=== PATIENT | male | born 1960 | race Caucasian/White ===

== ENCOUNTER 2018-05-15 00:52 | Emergency (ER) | payer MEDICAID ==
[~2018-05-15] VITALS: Ht 177.8 cm; Wt 86.2 kg
[~2018-05-15 00:52] MED LIST: CYCL10 PO; Flomax0.4 MG PO; HYDACE5 PO; IBUP800 PO; KETO10 PO; LEVFLO500 PO; NAPR220 PO; OXYACE5T PO; Percocet 5-3251 EACH PO; Zofran Odt4 MG PO
[2018-05-15 01:17] LABS: BASOPHILS ABSOLUTE AUTO 0.03 K/mm3 (0.00-0.23); BASOPHILS PERCENT AUTO 0 % (0-2); EOSINOPHILS ABSOLUTE AUTO 0.23 K/mm3 (0.00-0.68); EOSINOPHILS PERCENT AUTO 2 % (0-6); Hematocrit 41.9 % (37.0-53.0); Hemoglobin 13.6 g/dL (13.5-17.5); IMMATURE GRAN ABSOLUTE AUTO 0.02 K/mm3 (0.00-0.10); IMMATURE GRAN PERCENT AUTO 0 % (0-1); LYMPHOCYTES ABSOLUTE AUTO 2.49 K/mm3 (0.84-5.20); LYMPHOCYTES PERCENT AUTO 22 % (21-46); MONOCYTES ABSOLUTE AUTO 0.79 K/mm3 (0.16-1.47); MONOCYTES PERCENT AUTO 7 % (4-13); Mean Corpuscular HGB 31.8 pg (26.0-34.0); Mean Corpuscular HGB Conc 32.5 g/dL (31.5-36.5); Mean Corpuscular Volume 98 fL (80-100); Mean Platelet Volume 9.8 fL (9.1-12.4); NEUTROPHILS ABSOLUTE AUTO 7.65 K/mm3 (1.96-9.15); NEUTROPHILS PERCENT AUTO 68 % (41-73); Platelet Count 321 K/mm3 (150-400); RDW Coefficient Variation 12.4 % (11.7-14.2); RDW Standard Deviation 44.9 fL (35.1-46.3); Red Blood Cell Count 4.28 M/mm3 (4.30-5.90); White Blood Cell Count 11.21 K/mm3 (4.00-11.30)
[2018-05-15 01:48] LABS: Alanine Aminotransfer (ALT/SGP 25 U/L (12-78); Albumin, Blood 3.3 g/dL (3.4-5.0); Albumin/Globulin Ratio 1.1 (0.8-1.8); Alk Phos 70 U/L (50-136); Anion Gap 6 mmol/L (6-16); Aspartate Aminotrans (AST/SGOT 20 U/L (12-37); Bilirubin, Total 0.4 mg/dL (0.1-1.0); Blood Urea Nitrogen 22 mg/dL (8-24); Bun/Creatinine Ratio 18.6 (12.0-20.0); CO2, Blood 31 mmol/L (21-32); Calcium, Blood 8.2 mg/dL (8.5-10.1); Chloride, Blood 106 mmol/L (98-108); Creatinine, Blood 1.18 mg/dL (0.60-1.20); Glomerular Filtration Rate >60 (60-); Glucose, Blood 109 mg/dL (70-99); Potassium, Blood 3.5 mmol/L (3.5-5.5); Sodium, Blood 143 mmol/L (136-145); Total Protein, Blood 6.3 g/dL (6.4-8.2); Troponin I <0.015 ng/mL (0.000-0.040)
[2018-05-15] MEDS ORDERED: Protonix40 MG PO (02:42)
== END 2018-05-15 05:00 | disposition home or self-care (01) ==
LOC: ER 00:52
PROVIDERS: Emergency Medicine
DX: R07.9 Chest pain, unspecified (principal); F17.210 Nicotine dependence, cigarettes, uncomplicated; Z88.0 Allergy status to penicillin
CPT/HCPCS: 36415; 71046; 80053; 83880; 84484; 85025; 93005; 93010; 99284-25

== ENCOUNTER 2019-12-08 10:18 | Emergency (ER) | payer OTHER ==
[~2019-12-08] VITALS: Ht 177.8 cm; Wt 84.8 kg
[~2019-12-08 10:18] MED LIST changes: +Protonix40 MG PO
[2019-12-08 11:03] LABS: BASOPHILS ABSOLUTE AUTO 0.06 K/mm3 (0.00-0.23); BASOPHILS PERCENT AUTO 0 % (0-2); EOSINOPHILS ABSOLUTE AUTO 0.19 K/mm3 (0.00-0.68); EOSINOPHILS PERCENT AUTO 1 % (0-6); Hematocrit 41.9 % (37.0-53.0); IMMATURE GRAN ABSOLUTE AUTO 0.06 K/mm3 (0.00-0.10); IMMATURE GRAN PERCENT AUTO 0 % (0-1); LYMPHOCYTES ABSOLUTE AUTO 2.93 K/mm3 (0.84-5.20); LYMPHOCYTES PERCENT AUTO 20 % (21-46); MONOCYTES ABSOLUTE AUTO 1.21 K/mm3 (0.16-1.47); MONOCYTES PERCENT AUTO 8 % (4-13); Mean Corpuscular HGB 31.8 pg (26.0-34.0); Mean Corpuscular HGB Conc 33.4 g/dL (31.5-36.5); Mean Corpuscular Volume 95 fL (80-100); Mean Platelet Volume 9.7 fL (9.1-12.4); NEUTROPHILS ABSOLUTE AUTO 10.38 K/mm3 (1.96-9.15); NEUTROPHILS PERCENT AUTO 70 % (41-73); Platelet Count 372 K/mm3 (150-400); RDW Coefficient Variation 12.1 % (11.7-14.2); RDW Standard Deviation 42.9 fL (35.1-46.3); White Blood Cell Count 14.83 K/mm3 (4.00-11.30)
[2019-12-08 11:10] LABS: Albumin, Blood 3.7 g/dL (3.4-5.0); Albumin/Globulin Ratio 1.1 (0.8-1.8); Bilirubin, Total 0.4 mg/dL (0.1-1.0); Bun/Creatinine Ratio 16.4 (12.0-20.0); Calcium, Blood 8.3 mg/dL (8.5-10.1); Creatinine, Blood 1.34 mg/dL (0.60-1.20); Globulin, Blood 3.4 g/dL (2.2-4.0); Potassium, Blood 3.9 mmol/L (3.5-5.5); Total Protein, Blood 7.1 g/dL (6.4-8.2)
[2019-12-08] MEDS ORDERED: Norco 7.5-3251 EACH PO (12:24)
[2019-12-08] MEDS ORDERED: ONDA4ODT MM (12:24)
== END 2019-12-08 12:45 | disposition home or self-care (01) ==
LOC: ER 10:18
PROVIDERS: Emergency Medicine
DX: N13.2 Hydronephrosis with renal and ureteral calculous obstruction (principal); F17.210 Nicotine dependence, cigarettes, uncomplicated; Z88.0 Allergy status to penicillin; Z79.899 Other long term (current) drug therapy; Z87.442 Personal history of urinary calculi
CPT/HCPCS: 36415; 74176; 80053; 85025; 96374; 96375; 96376; 99284-25; J1170; J1885; J2405

== ENCOUNTER 2022-08-27 07:26 | Day surgery (SDC) | payer OTHER ==
[~2022-08-27] VITALS: Ht 177.8 cm; Wt 83.4 kg
[~2022-08-27 07:26] MED LIST changes: +Norco 7.5-3251 EACH PO; +ONDA4ODT MM
== END 2022-08-27 10:42 | disposition home or self-care (01) ==
LOC: ORSCSDS 07:26
PROVIDERS: Surgery
PROC: 0DJD8ZZ Inspection of Lower Intestinal Tract, Via Natural or Artificial Opening Endoscopic (ICD-10-PCS; principal; 2022-08-27 08:45)
PROC: 0DB68ZX Excision of Stomach, Via Natural or Artificial Opening Endoscopic, Diagnostic (ICD-10-PCS; principal; 2022-08-27 08:45)
PROC: 0DB98ZX Excision of Duodenum, Via Natural or Artificial Opening Endoscopic, Diagnostic (ICD-10-PCS; principal; 2022-08-27 08:45)
DX: R93.3 Abnormal findings on diagnostic imaging of other parts of digestive tract (principal); K29.50 Unspecified chronic gastritis without bleeding; B96.81 Helicobacter pylori [H. pylori] as the cause of diseases classified elsewhere; K29.80 Duodenitis without bleeding; R10.31 Right lower quadrant pain; K21.9 Gastro-esophageal reflux disease without esophagitis; F17.210 Nicotine dependence, cigarettes, uncomplicated
CPT/HCPCS: 88305; 88342; J2704; J7120

== ENCOUNTER 2022-10-13 19:07 | Inpatient (IN) | payer OTHER ==
[~2022-10-13] VITALS: Ht 177.8 cm; Wt 79.4 kg
[2022-10-13 20:21] LABS: BASOPHILS ABSOLUTE AUTO 0.04 K/mm3 (0.00-0.23); BASOPHILS PERCENT AUTO 0 % (0-2); EOSINOPHILS PERCENT AUTO 2 % (0-6); Hemoglobin 12.2 g/dL (13.5-17.5); IMMATURE GRAN ABSOLUTE AUTO 0.02 K/mm3 (0.00-0.10); IMMATURE GRAN PERCENT AUTO 0 % (0-1); LYMPHOCYTES ABSOLUTE AUTO 1.35 K/mm3 (0.84-5.20); LYMPHOCYTES PERCENT AUTO 15 % (21-46); MONOCYTES ABSOLUTE AUTO 0.67 K/mm3 (0.16-1.47); MONOCYTES PERCENT AUTO 8 % (4-13); Mean Corpuscular HGB 29.8 pg (26.0-34.0); Mean Corpuscular Volume 90 fL (80-100); Mean Platelet Volume 10.2 fL (9.1-12.4); NEUTROPHILS ABSOLUTE AUTO 6.61 K/mm3 (1.96-9.15); NEUTROPHILS PERCENT AUTO 75 % (41-73); Platelet Count 407 K/mm3 (150-400); RDW Coefficient Variation 12.4 % (11.7-14.2); White Blood Cell Count 8.89 K/mm3 (4.00-11.30)
[2022-10-13 20:37] LABS: Albumin, Blood 3.5 g/dL (3.4-5.0); Albumin/Globulin Ratio 0.8 (0.8-1.8); Bilirubin, Total 0.4 mg/dL (0.1-1.0); Bun/Creatinine Ratio 12.6 (12.0-20.0); Calcium, Blood 9.4 mg/dL (8.5-10.1); Creatinine, Blood 1.03 mg/dL (0.60-1.20); Globulin, Blood 4.4 g/dL (2.2-4.0); Potassium, Blood 4.3 mmol/L (3.5-5.5); Total Protein, Blood 7.9 g/dL (6.4-8.2)
[2022-10-13] MEDS ORDERED: METRONIDAZOLE PO (22:17)
[2022-10-13] MEDS ORDERED: [UNRECOGNIZED DRUG - CODE] PO (22:18)
--- NOTE | 2022-10-14 06:03 | NUR ---
SHIFT SUMMARY PT ER ADMIT THIS SHIFT AFTER EXPERIENCING INCREASED N/V. PT HAS AN ABD MASS WITH PLANS FOR SURGERY TODAY. PT WAS TAKING PRE OP PREP MEDICATION AT HOME WHEN HE BGAN EXPERIENCING N/V AND WAS UNABLE TO KEEP ANYTHING DOWN. PT HAS BEEN ADMITTED PER DR. MEJIA'S RECOMMENDATION. PT HAS NOT HAD ANY EPISODES OF N/V SINCE BEING ADMITTED. PT HAD INTERMITTENT ABD PAIN UPON ADMISSION WHICH WAS RELIVED WITH IV DILAUDID. PAIN IS T/O ABD, AND ABD IS FIRM/TENDER. PT HAS BEEN NPO SINCE MIDNIGHT BUT WAS ABLE TO TOLERATE SMALL SIPS OF WATER PRIOR TO THAT TIME. PT HAS BEEN HYPERTENSIVE, MEDICATED WITH HYDRALYZINE WITH EFFECT. ADMISSION COMPLETE, BED IN LOWEST POSITON, CALL LIGHT WITHIN REACH.
--- NOTE | 2022-10-14 07:14 | NUR ---
PT TO OR AT ABOUT 0640
--- NOTE | 2022-10-14 08:52 | NUR ---
10/14/22 0852 JESSICA WARD BUPIVACAINE 0.5% WAS USED AT TIME OF PROCEDURE.
--- NOTE | 2022-10-14 19:55 | NUR ---
POST OP: REPORT RECEIVED FROM PICK UP DRIVER. PT TO UNIT AT ABOUT 1120. PT IS ORIENTED, DROWSY. AWAKENS TO VOICE AND FOLLOWS COMMANDS. SURGICAL SITE TO ABD AND NEW MEDI-PORT DRESSINGS CDI. MAYRA COMPRESSED. PT RATING PAIN 9/10, SALT MANAGER VERIFIED WITH FAUSTO RAINEY AND STARTED. PT FAMILY AT BEDSIDE, CALL LIGHT IN REACH.
--- NOTE | 2022-10-14 19:58 | NUR ---
SUMMARY: NO ACUTE CHANGE SINCE POST OP. PT CONTINUES TO BE A LITTLE DROWSY, BUT MORE TALKATIVE. PAIN BETTER MANAGED AND RATING 5/10. PT ABLE TO SIT AT EDGE OF BED TONIGHT FOR A LITTLE BEFORE LAYING BACK DOWN. LONG DRAINING. SURGICAL SITES WNL. CONTINUIOUS OXIMETERY IN PLACE, PT ENCOURAGED TO DEEP BREATHE WHEN POSSIBLE, BREATHING IS SHALLOW AT TIMES DUE TO PAIN. NO ACUTE SAFETY CONCERNS, REPORT PASSED TO NOC FAUSTO MAGANA.
--- NOTE | 2022-10-15 01:05 | NUR ---
PT C/O NAUSEA TONIGHT WITH NO MEDS ORDERED.I CALLED DR CHIRINOS AND REQUESTED MED FOR NAUSEA. ALSO ADVISED PT C/O INCREASED PAIN.HANDS AND FEET COOL WITH MOTTLING WHICH IS NOT RESOLVING WITH WARM BLANKETS TO BOTH.PERFUSION APPEARS AFFECTING ABILITY TO GET ACCURATE PULSE OX REQUIRING EAR PROBE.ALSO ADVISED THAT PT HAS HAD OCC STATEMENT INAPPROPRIATE TO SITUATION ? 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 ALSO ADVISED NO LABS ORDERED FOR AM. PT CURRENTLY REFUSING TO REPOSITION IN BED AND STATES UNDERSTANDS RISK.DR GAVE ORDER FOR ZOFRAN AND NO FURTHER ORDERS. VERB MOTTLING NOT CONCERNING.
--- NOTE | 2022-10-15 03:00 | NUR ---
PT RECEIVED ZOFRAN THIS AM PER NEW ORDER,AND RECEIVED HYDRALAZINE PER PRIOR ORDERS WITH DR CHIRINOS AWARE.NURSING CALL RECEIVED WITH PT C/O SUDDEN SOB. SEE VS.02 REMAINS ON 2 L SAME FOR THIS SHIFT.SATS STABLE.HEART RATE MILDLY INCREASED.I CALLED FOR DR CHIRINOS WHO CAME TO ROOM AND DR ASHLEY WAS ALSO TO ROOM PER CX BY DR CHIRINOS.SEE MED,LAB AND XRAY ORDERS.
[2022-10-15 03:34] LABS: BASOPHILS ABSOLUTE AUTO 0.04 K/mm3 (0.00-0.23); BASOPHILS PERCENT AUTO 0 % (0-2); EOSINOPHILS ABSOLUTE AUTO 0.02 K/mm3 (0.00-0.68); EOSINOPHILS PERCENT AUTO 0 % (0-6); IMMATURE GRAN ABSOLUTE AUTO 0.06 K/mm3 (0.00-0.10); IMMATURE GRAN PERCENT AUTO 0 % (0-1); LYMPHOCYTES ABSOLUTE AUTO 1.44 K/mm3 (0.84-5.20); LYMPHOCYTES PERCENT AUTO 10 % (21-46); MONOCYTES ABSOLUTE AUTO 1.21 K/mm3 (0.16-1.47); MONOCYTES PERCENT AUTO 9 % (4-13); Mean Corpuscular HGB 30.1 pg (26.0-34.0); Mean Corpuscular HGB Conc 33.3 g/dL (31.5-36.5); Mean Corpuscular Volume 90 fL (80-100); NEUTROPHILS PERCENT AUTO 80 % (41-73); Platelet Count 412 K/mm3 (150-400); RDW Coefficient Variation 12.6 % (11.7-14.2); RDW Standard Deviation 41.4 fL (35.1-46.3); Red Blood Cell Count 3.99 M/mm3 (4.30-5.90); White Blood Cell Count 13.87 K/mm3 (4.00-11.30)
[2022-10-15 03:53] LABS: Albumin, Blood 3.1 g/dL (3.4-5.0); Albumin/Globulin Ratio 0.8 (0.8-1.8); Bilirubin, Total 0.4 mg/dL (0.1-1.0); Bun/Creatinine Ratio 15.7 (12.0-20.0); Calcium, Blood 8.7 mg/dL (8.5-10.1); Creatinine, Blood 1.02 mg/dL (0.60-1.20); Globulin, Blood 3.7 g/dL (2.2-4.0); Potassium, Blood 4.4 mmol/L (3.5-5.5); Total Protein, Blood 6.8 g/dL (6.4-8.2)
--- NOTE | 2022-10-15 04:00 | NUR ---
PT HAS SLEPT POST TESTS AND DOCTORS TO ROOM. WHILE SLEEPING,RESP APPEAR EVEN AND UNLABORED.WHEN AWAKENED AND ASKED,PT CONT TO REPORT SOB. DR ASHLEY REPORTED CXR OK.
--- NOTE | 2022-10-15 06:18 | NUR ---
PTS BNP WNL.MILD JVD NOTED PRIOR.OTHER LABS SATISF.PT NOW VERB BREATHING HAS IMPROVED.PT PREVIOUSLY REFUSING REPOSITIONING,BUT FINALLY ALLOWED ASSIST TO REPOSITION TO L SIDE.REQUIRED MINIMAL ASSIST. EVENT SECURITY OFFICER BUTTON AND CALL LIGHT IN HAND. CONT COOL HANDS AND FEET WITH LIGHT MOTTLING.
--- NOTE | 2022-10-15 07:53 | NUR ---
summary pt had visitor this am.resting on l side. zofran helping nausea.reported resolving sob.
--- NOTE | 2022-10-15 17:09 | NUR ---
Care Conference this morning with pt and family. Pt's mom and dad, fiance and "best friend" at bedside. Pt states he understands he has a new diagnosis of cancer, and he is planning to begin chemo "soon". He denies having any questions at this time, and seemed anxious to end the conversation. No further needs identified at this time.
--- NOTE | 2022-10-15 17:38 | NUR ---
PT REPORTS INT HEARTBURN, PAIN ADEQUATELY CONTROLLED WITH SKIN TANNER. KACI SMALL AMOUNT OF ICE CHIPS AND CLEAR LIQUIDS WITHOUT NAUSEA. MAYRA DRESSING WITH SMALL AMOUNT DRIED BLOODY DRAINAGE. PT BELCHING BUT NOT PASSING FLATUS
--- NOTE | 2022-10-16 06:36 | NUR ---
PT IS COMFORTABLE REPOSITIONING SELF THROUGHOUT SHIFT
--- NOTE | 2022-10-16 07:32 | NUR ---
SUMMARY PT OFF O2 TONIGHT.MAINTAINING SATS GREATER THAN 90.ALERT AND VISITING WITH FAMILY AND FRIEND THIS AM.
--- NOTE | 2022-10-16 15:45 | NUR ---
1535 TRANSFERRED TO ROOM 311 VIA BED. PT REPORTS ABD PAIN ADEQUATELY CONTROLLED TO ABD WITH PRECISION MARKET INSIGHTS, REPORTS FRONTAL HEADACHE AT THIS TIME. MAYRA IN PLACE TO MIDLINE ABD AND FUNCTIONING. KACI SMALL AMOUNTS CLEAR LIQUIDS AND ICE CHIPS, REPORTS OCC NAUSEA WHICH HAS BEEN CONTROLLED WITH MEDS. PT REPORTS OCC BELCHING BUT IS NOT PASSING FLATUS. OOB X1 WHICH RESULTED IN NAUSEA AND PT REQUESTED HE RETURN TO BED. HAS VOIDED CLEAR YELLOW URINE AFTER LONG DC.
--- NOTE | 2022-10-16 20:53 | NUR ---
SHIFT SUMMARY PT IS POD#2. PAIN MANAGED WITH NUT STEAMER. PT UNABLE TO GET OOB TODAY R/T NAUSEA, PT EDUCATED ABOUT IMPROTANCE OF GETTING OOB. PT STARTED TO HAVE SOME SWELLING AT THE UPPER INCISION OF THE MEDIPORT SITE THIS EVENING, KEERTHI LAMBERT WERNER NOTIFIED AT SHIFT CHANGE. REPORT GIVEN TO KEERTHI LAMBERT. CARE ASSUMED AT 1630.
--- NOTE | 2022-10-17 01:09 | NUR ---
2030: CALLED DR. MEJIA. PT REPORTS SWELLING ON R NECK ABOVE THE MEDIPORT SITE. AND MILD SWALLOWING DIFFICULTY. VSS. PT AOX4. ORDER FOR US NECK LICHA TO EVAL. WILL MONITOR OVERNIGHT.
[2022-10-17 04:42] LABS: Hematocrit 38.3 % (37.0-53.0); Hemoglobin 12.3 g/dL (13.5-17.5); Mean Corpuscular HGB 29.4 pg (26.0-34.0); Mean Corpuscular HGB Conc 32.1 g/dL (31.5-36.5); Mean Corpuscular Volume 91 fL (80-100); Mean Platelet Volume 10.1 fL (9.1-12.4); Platelet Count 433 K/mm3 (150-400); RDW Coefficient Variation 12.4 % (11.7-14.2); RDW Standard Deviation 41.1 fL (35.1-46.3); Red Blood Cell Count 4.19 M/mm3 (4.30-5.90); White Blood Cell Count 10.14 K/mm3 (4.00-11.30)
[2022-10-17 04:58] LABS: Bun/Creatinine Ratio 16.1 (12.0-20.0); Calcium, Blood 9.5 mg/dL (8.5-10.1); Creatinine, Blood 0.81 mg/dL (0.60-1.20); Potassium, Blood 4.2 mmol/L (3.5-5.5)
--- NOTE | 2022-10-17 07:57 | NUR ---
SHIFT SUMMARY PT REPORTS MILD SWELLING ON R NECK, MILD PAIN WITH PRESSURE AND SOME DIFFICULTY SWALLOWING. NOTIFIED DR. PATEL IS ABLE TO TOLERATE WATER AND ICE CHIPS OVERNIGHT WITHOUT PROBLEM. PT ABD PAIN HAS BEEN MILD TO MODERATE. PAIN MANAGED WITH COLLECTION SYSTEMS WORKER DILAUDID. HTN, HYDRALZINE GIVEN X1 THIS MORNING. LR INFUSING. ABD WITH MAYRA DRESSING, WITH SHADOWING REMAIN INTACT AND SUCTIONING. STILL HAS NO APPETITE, ATE 10% OF HIS DINNER. CALL LIGHT WITHIN REACH. REPORT GIVEN TO CHANO LAMBERT.
[2022-10-17 17:26] LABS: BASOPHILS ABSOLUTE AUTO 0.03 K/mm3 (0.00-0.23); BASOPHILS PERCENT AUTO 0 % (0-2); EOSINOPHILS PERCENT AUTO 1 % (0-6); Hematocrit 37.9 % (37.0-53.0); Hemoglobin 12.4 g/dL (13.5-17.5); IMMATURE GRAN ABSOLUTE AUTO 0.04 K/mm3 (0.00-0.10); IMMATURE GRAN PERCENT AUTO 0 % (0-1); LYMPHOCYTES PERCENT AUTO 13 % (21-46); MONOCYTES ABSOLUTE AUTO 1.38 K/mm3 (0.16-1.47); MONOCYTES PERCENT AUTO 14 % (4-13); Mean Corpuscular HGB 29.4 pg (26.0-34.0); Mean Corpuscular HGB Conc 32.7 g/dL (31.5-36.5); Mean Corpuscular Volume 90 fL (80-100); Mean Platelet Volume 9.9 fL (9.1-12.4); NEUTROPHILS ABSOLUTE AUTO 7.22 K/mm3 (1.96-9.15); NEUTROPHILS PERCENT AUTO 72 % (41-73); Platelet Count 449 K/mm3 (150-400); RDW Coefficient Variation 12.3 % (11.7-14.2); RDW Standard Deviation 40.6 fL (35.1-46.3); Red Blood Cell Count 4.22 M/mm3 (4.30-5.90); White Blood Cell Count 10.07 K/mm3 (4.00-11.30)
--- NOTE | 2022-10-17 17:55 | NUR ---
PT ARRIVED TO PCU07 AFTER STAT HEAD CT. PT IS LYING IN BED WITH EYES CLOSED, SLOW TO RESPOND, PINPOINT PUPILS NOTED. PT IS GENERALLY VERY WEAK, NO FOFCAL DEFICITS NOTED. ST ON MANIPULATIVE THERAPY SPECIALIST. PT'S FAMILY AT BEDSIDE, UPDATED ON PT'S CONDITION, AWAITING CT RESULTS AT THIS TIME. SEE DOCUMENTED VS. CALL LIGHT IN REACH OF PT'S AT THIS TIME, VERBALIZES UNDERSTANDING TO CALL STAFF FOR NEEDS.
--- NOTE | 2022-10-17 17:56 | NUR ---
Arrived to Pt's room with PUMP AND STILL OPERATOR underway. Pt's SO Jennyfer and Pt's sister/friend out in [place]. Offered supportive visit to family as Pt receives care. Listened as family report Pt has been stating wanting to go home. SO Jennyfer reports Pt does not want to pursue treatment for his cancer. Continued supportive visit. Instructed when Pt is more alert and feeling better this RN can have a goals of care conversation. Family appears significantly anxious asking the same questions over and over. Family appears fixated on Pt not having a BM in some time. Pt being transfered to PCU 07 and will receive stat head CT before heading to PCU. Called and spoke with Dr Watters and discussed case. 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 Spoke with Receiving MANAGER CASEFAUSTO Luna and discussed case. Pt was planned to start bowel protocol just prior to PUMP AND STILL OPERATOR and will start protocol soon. Pt resting in bed with his eyes closed. Pt appears lethargic and somnolant at time of visit. Palliative Care will F/U for goals of care conversation when Pt is more alert.
[2022-10-17 17:58] LABS: Bun/Creatinine Ratio 17.5 (12.0-20.0); Calcium, Blood 9.1 mg/dL (8.5-10.1); Creatinine, Blood 0.69 mg/dL (0.60-1.20); Magnesium, Blood 1.6 mg/dL (1.6-2.4); Phosphorus, Blood 2.1 mg/dL (2.5-4.9); Potassium, Blood 4.2 mmol/L (3.5-5.5)
--- NOTE | 2022-10-17 18:05 | NUR ---
Late Entry from previous note. Attempted to contact Pt's father who is listed as NOK on Pt's facesheet. Phone number listed is an invalid phone number.
--- NOTE | 2022-10-17 18:27 | NUR ---
SHIFT SUMMARY POD 2 EX LAP WITH BIOPSY PT WAS AA0X4 T/O, HE REPORTED PAIN WAS WELL CONTROLLED WITH DILAUDID ICU MANAGER. HE DENIES PASSING GAS DURING SHIFT AND WAS TOLERATING MINIMAL PO INTAKE. MIDLINE [facility] UNCHANGED DURING SHIFT. GREEN LIGHT FLASHING. SEE FLAT CUTTER DOCUMENTATION FOR CHANGES. ICU MANAGER DC'D DURING RAPID AND PATIENT GIVEN TWO DOSES OF NARCAN 0.4 WITH MINIMAL EFFECT. PUPILS REMAINED PINPOINT. SENT TO STAT HEAD CT THEN LEANDRA TO PCU 7, REPORT GIVEN TO RECIEVING RN AND BELONGINGS BROUGHT TO PATIENTS ROOM.
--- NOTE | 2022-10-17 18:46 | NUR ---
DR PAUL NOTIFIED OF CT RESULTS AND NA 129. NEW ORDERS RECEIVED.
[2022-10-18 05:40] LABS: Albumin, Blood 2.6 g/dL (3.4-5.0); Anion Gap 5 mmol/L (6-16); Blood Urea Nitrogen 9 mg/dL (8-24); Bun/Creatinine Ratio 13.6 (12.0-20.0); CO2, Blood 27 mmol/L (21-32); Calcium, Blood 8.5 mg/dL (8.5-10.1); Chloride, Blood 102 mmol/L (98-108); Creatinine, Blood 0.66 mg/dL (0.60-1.20); Glomerular Filtration Rate 105 (60-); Glucose, Blood 135 mg/dL (70-99); Phosphorus, Blood 2.5 mg/dL (2.5-4.9); Potassium, Blood 3.6 mmol/L (3.5-5.5); Sodium, Blood 134 mmol/L (136-145)
--- NOTE | 2022-10-18 06:02 | NUR ---
SHIFT SUMMARY ASSUMED CARE OF PT AT 1900. PT WAS VERY LETHARGIC AT THE START OF SHIFT, DIFFICULT TO AROUSE. AFTER STARTING FLUIDS AND MEDICATIONS, PT AWOKE AND WAS TALKING WITH FAMILY; FAMILY REPORTING PT BACK TO BASELINE. PT WAS PAINFUL T/O THE NIGHT. PT WAS GIVEN FENTYAL. THE FIRST TIME PT HAD NO COMPLAINTS AND STATED THAT IT HELPED ALOT. THE SECOND TIME PT RECEIVED FENTYAL, PT C/O THAT IT WASNT HELPING AND HE WANTED THE DILAUDID AGAIN. PT EDUCATED ON INITAL REASON FOR RAPID RESPONSE THAT BROUGHT HIM TO UNIT, BUT DID NOT THIS THIS INCIDENT WAS A CORRELATION. AND PT INSIST IT WAS BECAUSE PT NEEDED TO POOP AT THE TIME. PT WAS STARTED BACK ON HOME MEDICATIONS WITH NO EFFECT. PT THEN SAID HE WANTED TO LEAVE AMA BECAUSE HE WOULD RATHER BE IN PAIN AT HOME THAN THE HOSPITAL. PT EDUCATED ABOUT HOW THIS WOULD ONLY MAKE SITUATION WORSE. RESIDENT NOTIFIED OF PT WANTING TO LEAVE UNLESS GIVEN IV PAIN MEDICATION. RESIDENT REVIEWED CHARTS AND ORDERED MORPHINE. AT THIS TIME, PT HAD COME BACK FROM HOME AND WAS MASSAGING PT BACK. PT STATED THE MORHINE HELPED HIS PAIN FROM A 9 TO 4. PT AGREED TO STAY TO SEE DR MEJIA IN AM IN HOPES THAT HE WOULD CHECK ON HIS MIDLINE INCISION SITE TO HELP HIS PAIN MORE. PT AND ARE EAGER TO GET PT HOME. PT SON ARRIVED FROM [place] AT AROUND 0530 THIS AM. SON WAS UPDATED ABOUT PT CONDITION AND EVENTS OF THE NIGHT. SON AGREED THAT PT IS VERY STUBBORN AND DOES NOT DO WELL WITH PAIN. SON WILL BE IN ROOM WHEN DR PAZ.
--- NOTE | 2022-10-18 17:25 | NUR ---
SHIFT SUMMARY; ASSUMED CARE AT 0700, A/A/OX4 DURING SHIFT, VSS. REPOSITIONS SELF IN BED, USES URINAL AT BEDSIDE. MIDLINE DRESSING DRY AND INTACT WITH [employer] DRAIN. EVALUATED TODAY BY DR. MEJIA. HOSPICE DISCUSSED WITH BY DR. MEJIA, PT HOPING TO DISCHARGE TOMORROW. DILAUDID SUPPLY CHAIN PROCUREMENT MANAGER RESTARTED PER ORDERS. DR. MEJIA DISCUSSED NEED TO STAY ON MIRALAX TO KEEP BOWELS MOVING, PT VERBALIZES UNDERSTANDING BY REFUSED AM DOSE. SPOUSE AND CHILDREN AT BEDSIDE MOST OF SHIFT. NO ACUTE CHANGES, WILL CONTINUE TO MONITOR AND TREAT UNTIL CHANGE OF SHIFT.
[2022-10-19 04:35] LABS: BASOPHILS ABSOLUTE AUTO 0.02 K/mm3 (0.00-0.23); BASOPHILS PERCENT AUTO 0 % (0-2); EOSINOPHILS PERCENT AUTO 4 % (0-6); Hematocrit 33.8 % (37.0-53.0); Hemoglobin 10.9 g/dL (13.5-17.5); IMMATURE GRAN ABSOLUTE AUTO 0.02 K/mm3 (0.00-0.10); IMMATURE GRAN PERCENT AUTO 0 % (0-1); LYMPHOCYTES ABSOLUTE AUTO 1.02 K/mm3 (0.84-5.20); LYMPHOCYTES PERCENT AUTO 12 % (21-46); MONOCYTES ABSOLUTE AUTO 1.06 K/mm3 (0.16-1.47); MONOCYTES PERCENT AUTO 13 % (4-13); Mean Corpuscular HGB 29.2 pg (26.0-34.0); Mean Corpuscular HGB Conc 32.2 g/dL (31.5-36.5); Mean Corpuscular Volume 91 fL (80-100); Mean Platelet Volume 10.1 fL (9.1-12.4); NEUTROPHILS ABSOLUTE AUTO 5.94 K/mm3 (1.96-9.15); NEUTROPHILS PERCENT AUTO 71 % (41-73); Platelet Count 431 K/mm3 (150-400); RDW Coefficient Variation 12.4 % (11.7-14.2); RDW Standard Deviation 41.2 fL (35.1-46.3); Red Blood Cell Count 3.73 M/mm3 (4.30-5.90); White Blood Cell Count 8.36 K/mm3 (4.00-11.30)
[2022-10-19 04:54] LABS: Albumin, Blood 2.5 g/dL (3.4-5.0); Anion Gap 2 mmol/L (6-16); Blood Urea Nitrogen 5 mg/dL (8-24); Bun/Creatinine Ratio 7.7 (12.0-20.0); CO2, Blood 27 mmol/L (21-32); Calcium, Blood 8.4 mg/dL (8.5-10.1); Chloride, Blood 109 mmol/L (98-108); Creatinine, Blood 0.65 mg/dL (0.60-1.20); Glomerular Filtration Rate 106 (60-); Glucose, Blood 112 mg/dL (70-99); Magnesium, Blood 1.8 mg/dL (1.6-2.4); Phosphorus, Blood 2.7 mg/dL (2.5-4.9); Potassium, Blood 3.8 mmol/L (3.5-5.5); Sodium, Blood 138 mmol/L (136-145)
--- NOTE | 2022-10-19 06:28 | NUR ---
Assumed care of pt at 1900. A/Ox4, very pleasant. Slept for most of the night. Calls appropriately. VSS on 2L NC. No acute changes, will report to dayshift RN.
--- NOTE | 2022-10-19 10:10 | NUR ---
Joint visit with Dr Watters. Pt resting in bed and lots of family at bedside. Pt's parents, SO, son, and friend are present during visit. Dr Watters discusses findings, recommendations, and options. Therapeutic listening offered and questions answered. Discussed pain regimen with Pt agreeable to switch to oral pain medication. Pt educated on the importance of taking Miralax and activity to assist with bowel movements. Pt and family express appreciation. Plan will be for Pt to F/U with oncologist upon D/C. Palliative Care will remain available
[2022-10-19] MEDS ORDERED: LISI20 PO (14:30)
[2022-10-19] MEDS ORDERED: MIRALAX17 GM PO (14:31)
[2022-10-19] MEDS ORDERED: AMLO10 PO (14:32)
[2022-10-19] MEDS ORDERED: HYDMOR2 PO (14:33)
== END 2022-10-19 15:51 | disposition home or self-care (01) | DRG 356 ==
LOC: ER 19:07 → SURS 19:08 → ER 19:08 → SURS 21:58 → MEDS 21:59 → SURS 21:59 → MEDS 10-16 15:54 → PCU 10-17 17:25
PROVIDERS: Internal Medicine; Student in an Organized Health Care Education/Training Program; ADMIT Surgery
PROC: 0DBW0ZX Excision of Peritoneum, Open Approach, Diagnostic (ICD-10-PCS; principal; 2022-10-14 07:30)
PROC: 02HV33Z Insertion of Infusion Device into Superior Vena Cava, Percutaneous Approach (ICD-10-PCS; 2022-10-14 07:30)
DX: C78.6 Secondary malignant neoplasm of retroperitoneum and peritoneum (principal); J96.01 Acute respiratory failure with hypoxia; C18.9 Malignant neoplasm of colon, unspecified; J98.11 Atelectasis; C76.2 Malignant neoplasm of abdomen; M54.9 Dorsalgia, unspecified; G89.29 Other chronic pain; K29.50 Unspecified chronic gastritis without bleeding; K21.9 Gastro-esophageal reflux disease without esophagitis; F17.210 Nicotine dependence, cigarettes, uncomplicated; K59.00 Constipation, unspecified; G43.909 Migraine, unspecified, not intractable, without status migrainosus; I10 Essential (primary) hypertension; D72.829 Elevated white blood cell count, unspecified; G47.33 Obstructive sleep apnea (adult) (pediatric); R93.3 Abnormal findings on diagnostic imaging of other parts of digestive tract; Z88.0 Allergy status to penicillin; Z79.82 Long term (current) use of aspirin; Z98.890 Other specified postprocedural states; Z90.49 Acquired absence of other specified parts of digestive tract; Z79.899 Other long term (current) drug therapy; Z79.891 Long term (current) use of opiate analgesic; Z87.442 Personal history of urinary calculi
CPT/HCPCS: 36415; 70450; 71045; 74177; 76536; 77001; 80048; 80053; 80069; 82378; 83690; 83735; 83880; 84100; 85025; 85027; 86850; 86900; 86901; 88305; 88341; 88342; 93005; 93010; 94760; 94762; 96361; 96374-59; 96375; 99284-25; A9270; C1788; C9113; J0360; J0690; J1100; J1170; J1642; J1650; J2001; J2250; J2270; J2405; J2550; J2704; J2765; J3010; J3475; J7030; J7060; J7120; Q9967

== ENCOUNTER 2023-03-22 19:02 | Emergency (ER) | payer OTHER ==
[~2023-03-22] VITALS: Ht 175.3 cm; Wt 74.8 kg
[~2023-03-22 19:02] MED LIST changes: +AMLO10 PO; +HYDMOR2 PO; +LISI20 PO; +METRONIDAZOLE PO; +MIRALAX17 GM PO; +[UNRECOGNIZED DRUG - CODE] PO
[2023-03-22 21:30] VITALS: BP 191/97
== END 2023-03-22 22:56 | disposition home or self-care (01) ==
LOC: ER 19:02
DX: S20.219A Contusion of unspecified front wall of thorax, initial encounter (principal); F17.210 Nicotine dependence, cigarettes, uncomplicated; W11.XXXA Fall on and from ladder, initial encounter; Z95.828 Presence of other vascular implants and grafts; Z88.0 Allergy status to penicillin; Z79.899 Other long term (current) drug therapy
CPT/HCPCS: 70450; 71046; 99284-25

== ENCOUNTER 2023-03-24 19:29 | Emergency (ER) | payer OTHER ==
[~2023-03-24] VITALS: Ht 175.3 cm; Wt 81.7 kg
[2023-03-24] MEDS ORDERED: MS CONTIN3010 PO (20:28)
[2023-03-24] MEDS ORDERED: DEXA4 PO (20:28)
[2023-03-24] MEDS ORDERED: DIAZEPAM10 MG PO (20:29)
[2023-03-24] MEDS ORDERED: VALIUM10 MG PO (20:29)
[2023-03-24] MEDS ORDERED: PERCOCET 10-321 EA13 PO (20:29)
[2023-03-24 20:37] VITALS: BP 171/94
== END 2023-03-24 20:41 | disposition home or self-care (01) ==
LOC: ER 19:29
DX: S40.011A Contusion of right shoulder, initial encounter (principal); I10 Essential (primary) hypertension; Z88.0 Allergy status to penicillin; F17.210 Nicotine dependence, cigarettes, uncomplicated; Z79.899 Other long term (current) drug therapy; W19.XXXA Unspecified fall, initial encounter
CPT/HCPCS: 99285-25; A9270

== ENCOUNTER → 2023-06-07 | Outpatient (CLI) | payer OTHER ==
[~2023-06-07] MED LIST changes: +DEXA4 PO; +DIAZEPAM10 MG PO; +MS CONTIN3010 PO; +PERCOCET 10-321 EA13 PO; +VALIUM10 MG PO
== END | disposition home or self-care (01) ==
LOC: LAB SHORT 18:50 → LAB 18:50
DX: M79.671 Pain in right foot (principal)
CPT/HCPCS: 84550

== ENCOUNTER → 2023-06-07 | Outpatient (CLI) | payer OTHER | END | disposition home or self-care (01) | LOC: LAB 18:40 → LAB SHORT 18:40 | DX: M79.671 Pain in right foot (principal) | CPT/HCPCS: 87070; 87077; 87147; 87186; 87205 ==